=== PATIENT | female | born 1980 | race Hispanic/Latino ===

== ENCOUNTER 2019-10-08 16:51 | Inpatient (IN) | payer OTHER ==
[~2019-10-08] VITALS: Ht 160 cm; Wt 106.1 kg
[2019-10-08 17:57] LABS: HEMATOCRIT 34.7 % (36-48); MEAN CORPUSCULAR HEMOGLOBIN 27.9 pg (27.0-33.0); MEAN CORPUSCULAR HGB CONC 33.1 g/dL (32.0-36.0); MEAN CORPUSCULAR VOLUME 84.2 fL (79-99); PLATELET COUNT (AUTO) 208 K/uL (130-400); RED BLOOD CELL COUNT(AUTO) 4.12 MIL/uL (4.00-5.50); RED CELL DISTRIBUTION WIDTH 13.9 % (11.0-15.5); WHITE BLOOD COUNT (AUTO) 11.1 K/uL (4.8-10.8)
[2019-10-08 18:00] LABS: APPEARANCE,URINE Cloudy (CLEAR); BILIRUBIN,URINE Negative (NEGATIVE); COLOR,URINE Yellow (YELLOW); GLUCOSE, URINE (UA) Negative (NEGATIVE); KETONES,URINE Negative (NEGATIVE); LEUKOCYTE ESTERASE ,URINE Small (NEGATIVE); NITRATE,URINE Negative (NEGATIVE); OCCULT BLOOD,URINE Large (NEGATIVE); PROTEIN,URINE Trace mg/dL (NEGATIVE)
[2019-10-08] MEDS ORDERED: PHARMACY COMMUNICATION MISC SCH (18:00)
[2019-10-08] MEDS ORDERED: OXYTOCIN-LR 20 UNITS/1000 ML 1,000 ML IV SCH (18:00)
[2019-10-08 18:10] LABS: BACTERIA,URINE Few /HPF (None Seen)
[2019-10-08] MEDS ORDERED: ASPI-555 PO (19:59)
[2019-10-08] MEDS ORDERED: PREN-196 PO (19:59)
[2019-10-08 20:35] LABS: AMPHET/METH SCREEN,URINE NEGATIVE (NEGATIVE); BARBITURATE SCREEN, URINE NEGATIVE (NEGATIVE); BENZODIAZEPINES SCREEN,URINE NEGATIVE (NEGATIVE); CANNABINOID SCREEN,URINE NEGATIVE (NEGATIVE); COCAINE SCREEN,URINE NEGATIVE (NEGATIVE); OPIATE SCREEN,URINE NEGATIVE (NEGATIVE); PHENCYCLIDINE SCREEN,URINE NEGATIVE (NEGATIVE)
[2019-10-09] MEDS ORDERED: LACTATED RINGERS 1000ML 1,000 ML IV ONE (01:09)
[2019-10-09] MEDS: BUTORPHANOL TARTRATE 2 MG/ML IVP PRN ×2 (06:31→08:48)
[2019-10-09] MEDS ORDERED: METHYLERGONOVINE MALEATE 0.2 MG/1 ML ML ONE (10:26)
[2019-10-09] MEDS ORDERED: BENZOCAINE/LANOLIN/ALOE VERA 60 ML AEROSOL TP PRN (10:45)
[2019-10-09] MEDS ORDERED: ACETAMINOPHEN-CODEINE 300/30MG TAB PO PRN (10:45)
[2019-10-09] MEDS ORDERED: ACETAMINOPHEN 325 MG TAB PO PRN (10:45)
[2019-10-09] MEDS ORDERED: DIPH,PERTUSS(ACELL),TET VAC/PF 0.5 ML VIAL IM PRN (10:45)
[2019-10-09] MEDS ORDERED: MEASLES/MUMPS/RUBELLA VACCINE, LIVE 0.5 ML/VIAL SQ PRN (10:45)
[2019-10-09] MEDS ORDERED: WITCH HAZEL 1 PAD TP PRN (10:45)
[2019-10-09] MEDS ORDERED: LANOLIN 30GM OINTMENT TP PRN (10:45)
[2019-10-09 13:57] VITALS: BP 115/79
[2019-10-09 16:31] VITALS: BP 119/84
[2019-10-09] MEDS: IBUPROFEN 600 MG TABLET PO PRN (17:12)
[2019-10-09 19:33] VITALS: BP 121/68
[2019-10-09] MEDS: DOCUSATE SODIUM 100 MG CAP PO SCH (21:14)
[2019-10-09 23:36] VITALS: BP 86/44
[2019-10-10 00:13] VITALS: BP 101/63
[2019-10-10 03:17] VITALS: BP 108/63
[2019-10-10 06:09] LABS: HEPATITIS Bs ANTIGEN SCREEN P Negative (Negative)
[2019-10-10] MEDS: IBUPROFEN 600 MG TABLET PO PRN (07:33)
[2019-10-10 07:48] VITALS: BP 98/56
[2019-10-10] MEDS: DOCUSATE SODIUM 100 MG CAP PO SCH (08:42)
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
[2019-10-10] MEDS ORDERED: IBUP-2077 PO (10:55)
[2019-10-10] MEDS ORDERED: DOCU-116 PO (10:55)
[2019-10-10 11:20] VITALS: BP 116/72
--- NOTE | 2019-10-10 13:10 | NUR ---
verbal and written discharge instructions given, informed of the follow up appointment. prescription given, all questions answered, informed to call the doctor for future concerns, pt voiced understanding to all things discussed. Addendum: 10/10/19 at 1313 by GIOVANNA GODOY RN Amended: Links added.
--- NOTE | 2019-10-10 13:35 | NUR ---
pt is dismissed in stable condition, brought to private car via wheelchair. Addendum: 10/10/19 at 1342 by GIOVANNA GODOY RN Amended: Links added.
== END 2019-10-10 13:35 | disposition home or self-care (01) | DRG 807 ==
LOC: LDH 16:51 → WSH 10-09 13:55
PROVIDERS: ADMIT Obstetrics & Gynecology; ATTEND Obstetrics & Gynecology
PROC: 10907ZC Drainage of Amniotic Fluid, Therapeutic from Products of Conception, Via Natural or Artificial Opening (ICD-10-PCS; principal; 2019-10-09)
PROC: 10E0XZZ Delivery of Products of Conception, External Approach (ICD-10-PCS; 2019-10-09)
PROC: 0KQM0ZZ Repair Perineum Muscle, Open Approach (ICD-10-PCS; 2019-10-09)
PROC: 3E0234Z Introduction of Serum, Toxoid and Vaccine into Muscle, Percutaneous Approach (ICD-10-PCS; 2019-10-09)
PROC: 3E0134Z Introduction of Serum, Toxoid and Vaccine into Subcutaneous Tissue, Percutaneous Approach (ICD-10-PCS; 2019-10-09)
DX: O70.1 Second degree perineal laceration during delivery (principal); Z37.0 Single live birth; O62.2 Other uterine inertia; Z3A.37 37 weeks gestation of pregnancy; Z23 Encounter for immunization
CPT/HCPCS: 36415; 80305; 81001; 85027; 86592; 86850; 86900; 86901; 87340; 90715; G0378; J0595; J2210; J2590; J7120